=== PATIENT | male | born 1945 | race Caucasian/White ===

== ENCOUNTER 2017-08-29 07:15 | Emergency (ER) | payer OTHER ==
[~2017-08-29] VITALS: Ht 177.8 cm; Wt 138.9 kg
[2017-08-29] MEDS ORDERED: PROAIR HFA8.5 GM IH (07:39)
[2017-08-29] MEDS ORDERED: LEVOFLOXACIN500 MG PO (07:40)
[2017-08-29] MEDS ORDERED: BENZONATATE100 MG PO (07:40)
[2017-08-29 08:37] LABS: BASOPHIL (%) 0.3 % (0-1); EOSINOPHIL (%) 0.4 % (0-5); HEMATOCRIT 41.3 % (38.0-50.0); HEMOGLOBIN 14.2 G/DL (12.5-16.6); IMMATURE GRANULOCYTE (%) 0.3 % (0.0-0.7); LYMPHOCYTE (%) 22.1 % (15-42); LYMPHOCYTE COUNT 1.7 K/uL (1.0-2.8); MCH 30.7 PG (29.0-34.0); MCHC 34.4 G/DL (30.0-36.0); MCV 89.4 FL (86-99); MONOCYTE (%) 10.6 % (3-12); MONOCYTE COUNT 0.8 K/uL (0-0.8); NEUTROPHIL (%) 66.3 % (45-76); NEUTROPHIL COUNT 5.1 K/uL (1.8-6.4); PLATELET COUNT 179 K/uL (156-360); RBC DIS.WIDTH-CV 12.1 % (11.8-14.6); RBC DIS.WIDTH-SD 39.7 % (39-53); RED BLOOD COUNT 4.62 M/uL (4.00-5.50); WHITE BLOOD COUNT 7.7 K/uL (4.1-10.2)
[2017-08-29 08:50] LABS: CHLORIDE 97 mEq/L (99-109); POTASSIUM 4.2 mEq/L (3.7-5.4); SODIUM 132 mEq/L (136-147)
[2017-08-29 08:52] LABS: GLUCOSE 108 mg/dL (70-99)
[2017-08-29 08:56] LABS: GFR ESTIMATE (CALCULATED) > 59 mL/min/ (58.99-99999)
[2017-08-29 08:57] LABS: UREA NITROGEN (BUN) 14 mg/dL (9-23)
[2017-08-29] MEDS ORDERED: PREDNISONE50 MG PO (09:28)
[2017-08-29 09:51] VITALS: BP 146/78
== END 2017-08-29 09:53 | disposition home or self-care (01) ==
LOC: EME 07:15
PROVIDERS: Emergency Medicine
DX: J20.9 Acute bronchitis, unspecified (principal); Z87.891 Personal history of nicotine dependence
CPT/HCPCS: 71046; 80048; 85025; 94640; 99281; 99284; J7512